=== PATIENT | female | born 1985 | race Two or more races ===

== ENCOUNTER 2018-06-26 10:21 | Emergency (ER) | payer OTHER ==
[~2018-06-26] VITALS: Ht 154.9 cm; Wt 65.8 kg
== END 2018-06-26 16:20 | disposition home or self-care (01) ==
LOC: ER 10:21
DX: O20.0 Threatened abortion (principal); Z34.81 Encounter for supervision of other normal pregnancy, first trimester

== ENCOUNTER 2019-03-25 15:50 | Inpatient (IN) | payer OTHER ==
[~2019-03-25] VITALS: Ht 154.9 cm; Wt 71.7 kg
[2019-03-28] MEDS ORDERED: MAXFE CAPLET1 EACH PO (09:01)
== END 2019-03-28 18:30 | disposition home or self-care (01) | DRG 833 ==
LOC: OBS/DEL 15:50 → LDR 03-26 00:58 → OB/GYN 03-26 00:58
PROVIDERS: ADMIT Obstetrics & Gynecology
PROC: 4A0HXFZ Measurement of Products of Conception, Cardiac Rhythm, External Approach (ICD-10-PCS; principal; 2019-03-26)
DX: O47.1 False labor at or after 37 completed weeks of gestation (principal); Z3A.34 34 weeks gestation of pregnancy

== ENCOUNTER 2019-04-20 10:37 | Inpatient (IN) | payer OTHER ==
[~2019-04-20 10:37] MED LIST: MAXFE CAPLET1 EACH PO
[2019-04-24] MEDS ORDERED: OBSTETRIX DHA1 EACH PO (15:36)
== END 2019-04-26 11:11 | disposition home or self-care (01) | DRG 807 ==
LOC: EDSTATUS 11:00 → ADM 11:00 → LDR 04-24 08:08 → OB/GYN 04-24 08:08
PROVIDERS: ADMIT Obstetrics & Gynecology
PROC: 10E0XZZ Delivery of Products of Conception, External Approach (ICD-10-PCS; principal; 2019-04-24)
PROC: 0HQ9XZZ Repair Perineum Skin, External Approach (ICD-10-PCS; 2019-04-24)
PROC: 0UQMXZZ Repair Vulva, External Approach (ICD-10-PCS; 2019-04-24)
PROC: 3E033VJ Introduction of Other Hormone into Peripheral Vein, Percutaneous Approach (ICD-10-PCS; 2019-04-24)
PROC: 4A1HXCZ Monitoring of Products of Conception, Cardiac Rate, External Approach (ICD-10-PCS; 2019-04-24)
DX: O70.0 First degree perineal laceration during delivery (principal); Z37.0 Single live birth; O71.82 Other specified trauma to perineum and vulva; Z3A.38 38 weeks gestation of pregnancy; Z22.330 Carrier of Group B streptococcus